=== PATIENT | male | born 1950 | race Caucasian/White ===

== ENCOUNTER 2017-07-27 17:25 | Emergency (ER) | payer OTHER ==
[~2017-07-27] VITALS: Ht 170.2 cm; Wt 113.4 kg
[~2017-07-27 17:25] MED LIST: ALBUTEROL2.5 MG/3 M; HYZAAR 100-251 EACH; LIPITOR40 MG; MEDROLPACK PO; METFORMIN HCL500 MG; PRILOSEC OTC20 MG; PROAIR HFA8.5 GM; SYMBICORT 16010.2 GM; TUDORZA PRESS400 MCG
[2017-07-28] MEDS ORDERED: ZITHROMAX500 MG PO (15:00)
[2017-07-28] MEDS ORDERED: TESSALON PERLE100 M1 PO (15:00)
== END 2017-07-28 16:24 | disposition home or self-care (01) ==
LOC: ER 17:25
DX: J44.1 Chronic obstructive pulmonary disease with (acute) exacerbation (principal); R09.02 Hypoxemia; F17.210 Nicotine dependence, cigarettes, uncomplicated; G47.39 Other sleep apnea; E66.8 Other obesity; I11.9 Hypertensive heart disease without heart failure; J11.1 Influenza due to unidentified influenza virus with other respiratory manifestations

== ENCOUNTER 2017-11-05 08:06 | Outpatient (CLI) | payer OTHER ==
[~2017-11-05 08:06] MED LIST changes: +TESSALON PERLE100 M1 PO; +ZITHROMAX500 MG PO
== END 2017-11-05 08:09 | disposition home or self-care (01) ==
LOC: SONOGRAMA 08:06 → MAMO-SONO 08:15
DX: N18.3 Chronic kidney disease, stage 3 (moderate) (principal); R10.9 Unspecified abdominal pain; R31.9 Hematuria, unspecified

== ENCOUNTER 2018-07-06 17:04 | Emergency (ER) | payer OTHER ==
[~2018-07-06] VITALS: Ht 170.2 cm; Wt 108.9 kg
== END 2018-07-06 21:05 | disposition home or self-care (01) ==
LOC: ER 17:04
DX: J45.901 Unspecified asthma with (acute) exacerbation (principal); J11.1 Influenza due to unidentified influenza virus with other respiratory manifestations

== ENCOUNTER 2018-07-15 12:13 | Inpatient (IN) | payer OTHER ==
[~2018-07-15] VITALS: Ht 170.2 cm; Wt 108.9 kg
[2018-07-15] MEDS ORDERED: TRELEGY ELLIPT1 EACH (12:32)
== END 2018-07-21 16:35 | disposition home or self-care (01) | DRG 193 ==
LOC: ER 12:13 → EDSEX 13:16 → SEC-K 18:03 → SURG 07-17 05:54
PROVIDERS: ADMIT Internal Medicine
PROC: BW24ZZZ Computerized Tomography (CT Scan) of Chest and Abdomen (ICD-10-PCS; principal; 2018-07-15)
PROC: 3E0F7GC Introduction of Other Therapeutic Substance into Respiratory Tract, Via Natural or Artificial Opening (ICD-10-PCS; 2018-07-15)
PROC: 4A033R1 Measurement of Arterial Saturation, Peripheral, Percutaneous Approach (ICD-10-PCS; 2018-07-15)
PROC: 8E0ZXY6 Isolation (ICD-10-PCS; 2018-07-15)
DX: J10.1 Influenza due to other identified influenza virus with other respiratory manifestations (principal); J80 Acute respiratory distress syndrome; J44.1 Chronic obstructive pulmonary disease with (acute) exacerbation; E66.01 Morbid (severe) obesity due to excess calories; G47.33 Obstructive sleep apnea (adult) (pediatric); I10 Essential (primary) hypertension; E78.49 Other hyperlipidemia; K21.9 Gastro-esophageal reflux disease without esophagitis; E11.9 Type 2 diabetes mellitus without complications; Z79.4 Long term (current) use of insulin

== ENCOUNTER 2018-08-01 00:10 | Emergency (ER) | payer OTHER ==
[~2018-08-01] VITALS: Ht 170.2 cm; Wt 106.1 kg
[~2018-08-01 00:10] MED LIST changes: +TRELEGY ELLIPT1 EACH
[2018-08-01] MEDS ORDERED: IRON1TAB4 PO (03:43)
== END 2018-08-01 03:51 | disposition home or self-care (01) ==
LOC: ER 00:10
DX: S10.83XA Contusion of other specified part of neck, initial encounter (principal); S39.83XA Other specified injuries of pelvis, initial encounter; R42 Dizziness and giddiness; W01.0XXA Fall on same level from slipping, tripping and stumbling without subsequent striking against object, initial encounter; Y93.E1 Activity, personal bathing and showering; Y92.012 Bathroom of single-family (private) house as the place of occurrence of the external cause; Y99.8 Other external cause status

== ENCOUNTER 2019-01-19 11:00 | Outpatient (CLI) | payer OTHER ==
[~2019-01-19 11:00] MED LIST changes: +IRON1TAB4 PO
== END 2019-01-19 11:10 | disposition home or self-care (01) ==
LOC: LAB 11:00
DX: J44.9 Chronic obstructive pulmonary disease, unspecified (principal)

== ENCOUNTER 2019-01-19 12:51 | Outpatient (CLI) | payer OTHER | END 2019-01-19 12:57 | disposition home or self-care (01) | LOC: RAD 12:51 | DX: J44.9 Chronic obstructive pulmonary disease, unspecified (principal); J31.1 Chronic nasopharyngitis; J32.8 Other chronic sinusitis ==

== ENCOUNTER 2019-01-29 10:35 | Inpatient (IN) | payer OTHER ==
[~2019-01-29] VITALS: Ht 170.2 cm; Wt 106.6 kg
[2019-01-29] MEDS ORDERED: NITROGLYCERIN0.4 MG (10:57)
== END 2019-02-08 19:35 | disposition home or self-care (01) | DRG 341 ==
LOC: ER 10:35 → SEC-K 19:12 → SURH 19:12 → MEDJ 01-30 14:03 → SEC-K 01-30 14:22 → SURH 01-30 14:27
PROVIDERS: ADMIT Internal Medicine
PROC: 0DTJ4ZZ Resection of Appendix, Percutaneous Endoscopic Approach (ICD-10-PCS; principal; 2019-02-01)
DX: K35.31 Acute appendicitis with localized peritonitis and gangrene, without perforation (principal); A41.9 Sepsis, unspecified organism; K91.30 Postprocedural intestinal obstruction, unspecified as to partial versus complete; K35.33 Acute appendicitis with perforation, localized peritonitis, and gangrene, with abscess; G89.18 Other acute postprocedural pain; B96.29 Other Escherichia coli [E. coli] as the cause of diseases classified elsewhere; B96.5 Pseudomonas (aeruginosa) (mallei) (pseudomallei) as the cause of diseases classified elsewhere; B95.4 Other streptococcus as the cause of diseases classified elsewhere

== ENCOUNTER 2020-06-15 22:46 | Emergency (ER) | payer OTHER ==
[~2020-06-15] VITALS: Ht 170.2 cm; Wt 106.6 kg
[~2020-06-15 22:46] MED LIST changes: +NITROGLYCERIN0.4 MG
[2020-06-15] MEDS ORDERED: ECPIRIN325 MG (22:51)
== END 2020-06-16 02:23 ==
LOC: ER 22:46
DX: S33.5XXA Sprain of ligaments of lumbar spine, initial encounter (principal); S90.01XA Contusion of right ankle, initial encounter; S00.03XA Contusion of scalp, initial encounter; W06.XXXA Fall from bed, initial encounter; Y93.84 Activity, sleeping; Y92.092 Bedroom in other non-institutional residence as the place of occurrence of the external cause; Y99.8 Other external cause status

== ENCOUNTER 2020-07-11 11:57 | Emergency (ER) | payer OTHER ==
[~2020-07-11] VITALS: Ht 170.2 cm; Wt 106.6 kg
[~2020-07-11 11:57] MED LIST changes: +ECPIRIN325 MG
== END 2020-07-11 15:43 | disposition home or self-care (01) ==
LOC: ER 11:57
DX: G89.11 Acute pain due to trauma (principal); R51.9 Headache, unspecified; M54.2 Cervicalgia; R42 Dizziness and giddiness

== ENCOUNTER 2023-07-31 23:41 | Emergency (ER) | payer OTHER ==
[~2023-07-31] VITALS: Ht 170.2 cm; Wt 102.1 kg
[~2023-07-31 23:41] MED LIST changes: +OMEGA-3 FISH O1 EAC3; +OMEGA-31000 MG; +PEPCID AC20 MG PO; +PERCOCET 5-3251 EACH PO
== END 2023-08-01 | disposition left against medical advice (07) ==
LOC: ER 23:41
DX: Z53.21 Procedure and treatment not carried out due to patient leaving prior to being seen by health care provider (principal)

== ENCOUNTER 2023-08-01 15:54 | Emergency (ER) | payer OTHER ==
[~2023-08-01] VITALS: Ht 167.6 cm; Wt 102.1 kg
== END 2023-08-01 21:26 | disposition left against medical advice (07) ==
LOC: ER 15:54
DX: Z53.21 Procedure and treatment not carried out due to patient leaving prior to being seen by health care provider (principal)

== ENCOUNTER 2023-08-13 13:58 | Outpatient (CLI) | payer OTHER | END 2023-08-13 14:05 | disposition home or self-care (01) | LOC: TOM 13:58 | PROVIDERS: ATTEND Internal Medicine Cardiovascular Disease | DX: R51.0 Headache with orthostatic component, not elsewhere classified (principal) ==

== ENCOUNTER 2024-10-06 07:00 | Outpatient (CLI) | payer OTHER ==
[2024-10-06 12:32] LABS: PH,URINE 5.5 (5.0-8.0); URINE APPEARANCE Clear; URINE BILIRRUBIN Negative (NEGATIVE); URINE BLOOD Negative; URINE COLOR Yellow; URINE GLUCOSE Negative (NEGATIVE); URINE KETONE Negative (NEGATIVE); URINE LEUKOCYTE Trace; URINE NITRATE Negative; URINE PROTEIN 30 (NEGATIVE); URINE UROBILINOGEN 0.2 E.U./dl
[2024-10-06 12:33] LABS: URINE EPITHELIAL CELLS 3.6 uL (0.0-38.8); URINE WBC 5.9 uL (0.0-23.2)
[2024-10-06 12:40] LABS: MEAN CORPUSCULAR HGB CONC 32.9 g/dl (32.0-36.0); PLATELET COUNT 239 K/uL (150-450); RED BLOOD COUNT 3.67 M/uL (4.00-6.00); RED CELL DISTRIBUTION WIDTH 14.6 % (11.5-14.5)
[2024-10-06 12:41] LABS: URINE CAST 0.58 uL (0.0-1.40)
[2024-10-06] MEDS ORDERED: TRELEGY ELLIPT1 EACH IH (12:49)
[2024-10-06 13:06] LABS: HEMOGLOBIN 11.9 g/dL (13-16.00); MEAN CORPUSCULAR HEMOGLOBIN 32.4 pg (27.00-32.0)
[2024-10-06 13:12] LABS: INR 0.95; PARTIAL THROMBOPLASTIN TIME 26.4 SECONDS (22.0-34.0); PROTHROMBIN TIME 10.4 SECONDS (9.0-11.5)
[2024-10-06 13:55] LABS: ALBUMIN 3.9 gm/dL (3.4-5.0); BILIRUBIN TOTAL 0.33 mg/dL (0.3-1.2); CALCIUM 10.2 mg/dL (8.5-10.1); CREATININE SERUM 0.99 mg/dL (0.70-1.30); GFR 73.5; GLOBULINA 3.2 G/DL (2.4-3.5); POTASSIUM 5.25 mEq/L (3.5-5.1); TOTAL PROTEIN 7.1 gm/dL (6.4-8.2)
== END 2024-10-06 07:15 | disposition home or self-care (01) ==
LOC: LAB 07:00 → ADM 10:00 → CIR.AMB 10-14 09:15 → EDSTATUS 10-14 10:00
PROVIDERS: ATTEND Surgery
DX: K42.0 Umbilical hernia with obstruction, without gangrene (principal); K40.20 Bilateral inguinal hernia, without obstruction or gangrene, not specified as recurrent; I10 Essential (primary) hypertension; R10.9 Unspecified abdominal pain